=== PATIENT | female | born 1985 | race Caucasian/White ===

== ENCOUNTER 2019-03-17 05:36 | Emergency (ER) | payer OTHER ==
[~2019-03-17] VITALS: Ht 188 cm; Wt 210.9 kg
[2019-03-17] MEDS ORDERED: AMLODIPINE BESY10 MG PO (05:45)
[2019-03-17] MEDS ORDERED: METFORMIN HCL500 M3 PO (05:45)
[2019-03-17] MEDS ORDERED: PRILOSEC OTC20 MG PO (05:46)
[2019-03-17] MEDS ORDERED: ZANAFLEX4 M1 PO (05:47)
[2019-03-17] MEDS ORDERED: REMICADE 1100 MG/VIA IV (05:50)
[2019-03-17 07:21] LABS: CALCIUM 8.7 mg/dL (8.5-10.1); CREATININE 0.8 mg/dL (0.6-1.0); POTASSIUM 3.6 mmol/L (3.5-5.1)
[2019-03-17 07:22] LABS: HEMATOCRIT 34.9 % (37.0-47.0); HEMOGLOBIN 11.2 gm/dL (12.0-15.0); MCHC 32.1 g/dL (28.0-37.0); MCV 80.9 fL (80.0-100.0); RBC 4.31 mil/uL (4.20-5.00); RDW 15.6 % (10.5-14.5); WBC 9.7 thou/uL (4.0-11.0)
[2019-03-17 07:27] LABS: ALBUMIN 3.3 g/dL (3.4-5.0); TOTAL BILIRUBIN 0.5 mg/dL (<0.1-1.0); TOTAL PROTEIN 6.8 g/dL (6.4-8.2)
[2019-03-17] MEDS ORDERED: NORCO 5-325 TA1 EAC1 PO (08:18)
[2019-03-17 09:20] VITALS: BP 132/71
== END 2019-03-17 09:20 | disposition home or self-care (01) ==
LOC: ER 05:36
PROVIDERS: Emergency Medicine
DX: J02.9 Acute pharyngitis, unspecified (principal); M35.2 Behcet's disease; Z79.899 Other long term (current) drug therapy; Z88.1 Allergy status to other antibiotic agents; Z88.0 Allergy status to penicillin; Z88.8 Allergy status to other drugs, medicaments and biological substances